=== PATIENT | female | born 1965 | race Caucasian/White ===

== ENCOUNTER → 2016-09-13 | Outpatient (CLI) | payer BC ==
[~2016-09-13] VITALS: Ht 177.8 cm; Wt 99.8 kg
== END | disposition home or self-care (01) ==
LOC: AMB 08-02 11:30
PROC: 0DJD8ZZ Inspection of Lower Intestinal Tract, Via Natural or Artificial Opening Endoscopic (ICD-10-PCS; principal; 2016-09-13)
DX: K64.8 Other hemorrhoids (principal); K62.89 Other specified diseases of anus and rectum; R10.9 Unspecified abdominal pain; R73.03 Prediabetes
CPT/HCPCS: J2250